=== PATIENT | male | born 1950 | race Caucasian/White ===

== ENCOUNTER 2019-10-23 16:18 | Emergency (ER) | payer MEDICARE, OTHER ==
[~2019-10-23] VITALS: Ht 182.9 cm; Wt 82.1 kg
--- NOTE | 2019-10-23 16:26 | NUR ---
LAITH WHEELER 59 from [facility] "Had diarrhea couple days ago was seen by Resident MD today and b/p was arouns [id number]. [id number], to ER bed 10, hooked to monitor, changed to hosp gown, warm blanklet provided, patient aao X 2, Dr Belle at bedside
[2019-10-23] MEDS ORDERED: FOLI0.4T2 PO (16:47)
[2019-10-23] MEDS ORDERED: RISP0.2515 PO (16:47)
[2019-10-23] MEDS ORDERED: ESCI10TA PO (16:47)
[2019-10-23] MEDS ORDERED: DOCU-141 PO (16:47)
[2019-10-23] MEDS ORDERED: AMLO5TAB9 PO (16:47)
[2019-10-23] MEDS ORDERED: METF-440 PO (16:47)
[2019-10-23] MEDS ORDERED: FERR325T23 PO (16:47)
[2019-10-23] MEDS ORDERED: MAGN400O6 PO (16:47)
[2019-10-23] MEDS ORDERED: OMEP20CA15 PO (16:47)
[2019-10-23] MEDS ORDERED: HYDR-4354 PO (16:47)
[2019-10-23] MEDS ORDERED: INSU100V7 SQ (16:47)
[2019-10-23] MEDS ORDERED: ATOR40TA PO (16:47)
[2019-10-23] MEDS ORDERED: IV NS 0.9% 1,000 ML BAG IV ONE (17:00)
[2019-10-23 17:11] LABS: BASOPHILS # (AUTO) 0.1 /CMM (0.0-0.2); BASOPHILS % (AUTO) 0.8 % (0.0-2.0); EOSINOPHILS % (AUTO) 2.7 % (0.0-6.0); HEMATOCRIT 35 % (39-51); HEMOGLOBIN 11.5 g/dL (13.5-17.5); LYMPHOCYTES # (AUTO) 1.3 /CMM (0.8-4.8); LYMPHOCYTES % (AUTO) 15.6 % (20.0-44.0); MEAN CORPUSCULAR HGB CONC 33 g/dl (31.0-36.0); MEAN CORPUSCULAR VOLUME 91 fL (80-96); MONOCYTES # (AUTO) 0.8 /CMM (0.1-1.30); MONOCYTES % (AUTO) 10.4 % (2.0-12.0); NEUTROPHILS # (AUTO) 5.7 /CMM (1.8-8.9); NEUTROPHILS % (AUTO) 70.5 % (43.0-81.0); PLATELET COUNT (AUTO) 282 /CMM (150-450); RED BLOOD CELL COUNT(AUTO) 3.87 MIL/uL (4.5-6.0); WHITE BLOOD COUNT (AUTO) 8.1 K/uL (4.3-11.0)
[2019-10-23 17:20] LABS: CALCIUM, SERUM 9.4 mg/dL (8.5-10.1); CREATININE 1.2 mg/dL (0.6-1.3); POTASSIUM 4.3 mmol/L (3.5-5.1)
[2019-10-23 17:26] LABS: ALBUMIN 2.9 g/dL (3.4-5.0); BILIRUBIN,DIRECT 0.1 mg/dL (0.0-0.2); BILIRUBIN,TOTAL 0.2 mg/dL (0.2-1.0); TOTAL PROTEIN, SERUM 7.4 g/dL (6.4-8.2)
--- NOTE | 2019-10-23 18:47 | NUR ---
CALLED [facility] FOR TRANSPORT TO [facility]. ETA 2300.
--- NOTE | 2019-10-23 19:10 | NUR ---
PT RESTING COMFORTABLY IN BED. NO ACUTE DISTRESS NOTED. VSS. NO MEDICAL COMPLAINTS AT THIS TIME
--- NOTE | 2019-10-23 19:15 | NUR ---
ASSUMED CARE FOR THIS PT
--- NOTE | 2019-10-23 21:14 | NUR ---
REPORT GIVEN TO TRANSFER. PT TRANSFERED BACK TO FACILITY.
[2019-10-23 21:15] VITALS: BP 148/83
== END 2019-10-23 21:20 | disposition home or self-care (01) ==
LOC: ER 16:18
DX: I95.89 Other hypotension (principal); R19.7 Diarrhea, unspecified; R53.1 Weakness; E11.9 Type 2 diabetes mellitus without complications; Z86.73 Personal history of transient ischemic attack (TIA), and cerebral infarction without residual deficits; Z79.4 Long term (current) use of insulin; Z79.82 Long term (current) use of aspirin; Z79.899 Other long term (current) drug therapy; Z79.84 Long term (current) use of oral hypoglycemic drugs
CPT/HCPCS: 36415; 80048; 80076; 85025; 96360; 99283; J7030

== ENCOUNTER 2019-12-28 16:47 | Inpatient (IN) | payer MEDICARE, OTHER ==
[~2019-12-28] VITALS: Ht 182.9 cm; Wt 80.3 kg
[~2019-12-28 16:47] MED LIST: AMLO5TAB9 PO; ATOR40TA PO; DOCU-141 PO; ESCI10TA PO; FERR325T23 PO; FOLI0.4T2 PO; HYDR-4354 PO; INSU100V7 SQ; MAGN400O6 PO; METF-440 PO; OMEP20CA15 PO; RISP0.2515 PO
--- NOTE | 2019-12-28 17:20 | NUR ---
ALEXANDER FROM [facility] ASSISTED LIVING TO ER BED 12. AWAKE BUT DOES NOT RESPOND WHAEN TALKED TO. NOT IN RESP DISTRESS. BREATHING EVEN AND UNLABORED. BROUGHT IN FOR HYPOGLYCEMIA. PT WAS REPORT TO BE NOTED @ 28 WAS GIVEN DEXTROSE AND WENT UP TO THE 200'S. UPON ASSESSMENT, BS IS NOTED @ 98. WAS AT THE BEDSIDE FOR EVAL. AWAITING FURTHER ORDERS. IV LINE ALREAEDY ESTABLISHED BY EMS FRUIT DUMPER ON R AC 18G. WILL CONTINUE TO MONITOR PT
--- NOTE | 2019-12-28 17:40 | NUR ---
XRAY AND EKG AT BEDSIDE
[2019-12-28 17:46] LABS: BASOPHILS % (AUTO) 0.4 % (0.0-2.0); EOSINOPHILS % (AUTO) 0.6 % (0.0-6.0); HEMATOCRIT 34 % (39-51); HEMOGLOBIN 11.2 g/dL (13.5-17.5); LYMPHOCYTES # (AUTO) 0.9 /CMM (0.8-4.8); LYMPHOCYTES % (AUTO) 10.3 % (20.0-44.0); MEAN CORPUSCULAR HGB CONC 33 g/dl (31.0-36.0); MEAN CORPUSCULAR VOLUME 90 fL (80-96); MONOCYTES % (AUTO) 11.4 % (2.0-12.0); NEUTROPHILS # (AUTO) 6.9 /CMM (1.8-8.9); NEUTROPHILS % (AUTO) 77.3 % (43.0-81.0); PLATELET COUNT (AUTO) 268 /CMM (150-450); RED BLOOD CELL COUNT(AUTO) 3.74 MIL/uL (4.5-6.0); WHITE BLOOD COUNT (AUTO) 8.9 K/uL (4.3-11.0)
[2019-12-28 17:49] LABS: CARBON DIOXIDE 29 mmol/L (21-32); CHLORIDE 103 mmol/L (98-107); CREATININE 0.9 mg/dL (0.6-1.3); GLUCOSE 87 mg/dL (74-106); POTASSIUM 3.9 mmol/L (3.5-5.1); SODIUM SERUM 140 mmol/L (136-145); UREA NITROGEN, BLOOD 15 mg/dL (7-18)
[2019-12-28] MEDS ORDERED: ACETAMINOPHEN 325 MG TABLET PO PRN ×2 (19:00→23:00)
[2019-12-28] MEDS ORDERED: HYDROCODONE/APAP 5/325MG TABLET PO PRN (19:00)
[2019-12-28] MEDS ORDERED: MAGNESIUM HYDROXIDE 30 ML UDC PO PRN ×2 (19:00)
[2019-12-28] MEDS ORDERED: INSULIN REGULAR, HUMAN 100 UNIT/ML 3 ML VIAL SQ PRN (19:00)
[2019-12-28] MEDS ORDERED: MAG HYDROX/AL HYDROX/SIMETH 30 ML UDC PO PRN (19:00)
[2019-12-28] MEDS ORDERED: Z GUARD REMEDY 2 OZ OINT TP PRN ×2 (19:00→23:00)
[2019-12-28] MEDS ORDERED: ONDANSETRON HCL/PF 4 MG/2 ML VIAL IVP PRN ×2 (19:00→23:00)
[2019-12-28] MEDS ORDERED: DEXTROSE 50%-WATER 50 ML DISP.SYRIN IV PRN ×2 (19:00→23:00)
[2019-12-28] MEDS ORDERED: IV D5/0.45 NACL 1,000 ML IV PRN (19:00)
[2019-12-28] MEDS ORDERED: DEXTROSE 50%-WATER 50 ML DISP.SYRIN ONE (19:26)
--- NOTE | 2019-12-28 19:28 | NUR ---
COVID SWAB DONE AND SENT TO LAB
[2019-12-28] MEDS ORDERED: DEXTROSE 50%-WATER 50 ML DISP.SYRIN IVP ONE (19:30)
[2019-12-28] MEDS ORDERED: IV 10% DEXTROSE 1,000 ML IV STA (19:44)
--- NOTE | 2019-12-28 19:54 | NUR ---
LAB CALLED REGARDING NEGATIVE COVID RESULT.
--- NOTE | 2019-12-28 20:49 | NUR ---
BED ASSIGNMENT 325-1
--- NOTE | 2019-12-28 21:01 | NUR ---
REPORT GIVEN TO MONIE TAYLOR FOR YG
[2019-12-28 21:16] VITALS: BP 140/80
--- NOTE | 2019-12-28 21:27 | NUR ---
PT TRANSPORTED TO UNIT ON [address] WITH EMT AT BEDSIDE. PT IS IN STABLE CONDITION FOR TRANSPORT. NAD NOTED
[2019-12-28] MEDS ORDERED: BLOOD SUGAR DIAGNOSTIC 1 EACH STRIP IN SCH (22:00)
[2019-12-28] MEDS ORDERED: risperiDONE 0.25 MG TABLET PO SCH (22:00)
--- NOTE | 2019-12-28 22:44 | NUR ---
TELE/MEDICAL OFFICE TECHNOLOGIST NOTE Patient arrived @ 2115 via gurney from ER. VS BP 140/80 T98/2 P96 R18 [id number] Patient is lethargic, A/O x1-2. Breath sounds even, clear, unlabored on room air. Tele monitor reading normal sinus rhythm, HR in the 90's. No acute distress or SOB noted. CRP <3seconds. No JVD. Tongue midline, no tracheal deviation. PERRLA. Patient does not have teeth and states he does not own dentures. Tongue is pink, mucous membranes moist. Abdomen small, round, soft, non-tender. BS hypoactive. Skin is warm, pink, dry, appropriate for ethnicity. Redness noted on sacrum. Abrasion noted on right thigh, measuring 9cm x 3cm. Photos taken and documented. Oracle Applications Developer strength 3+. Mild weakness noted in right lower extremity. Patient in incontinent, without difficulty. IV site RAC 18g running D10 @ 120 ml/hr, no infiltration. Patient is oriented to room. Bed in low position, wheels locked, side rails up x2, call light within reach.
[2019-12-28] MEDS ORDERED: GLUCAGON,HUMAN RECOMBINANT 1 MG/VIAL VIAL IM ONE (23:00)
[2019-12-28 23:59] VITALS: BP 156/79
[2019-12-29] VITALS (7 sets, daily range): BP systolic 137–158; BP diastolic 56–90
[2019-12-29] MEDS: BLOOD SUGAR DIAGNOSTIC 1 EACH STRIP IN SCH ×6 (00:04→21:02)
--- NOTE | 2019-12-29 00:15 | NUR ---
TELE/RN NOTE Patient's BS is 51. Patient was lethargic. Administered PRN D50 as ordered. Rechecked BS 70.
[2019-12-29] MEDS ORDERED: GLUCAGON,HUMAN RECOMBINANT 1 MG/VIAL VIAL ONE (00:53)
--- NOTE | 2019-12-29 06:03 | NUR ---
TELE/RN CLOSING NOTE Patient is lethargic, A/O x1-2. Breath sounds even, clear, unlabored on room air. Tele monitor reading normal sinus rhythm. No acute distress or SOB noted. Tongue is pink, mucous membranes moist. Abdomen small, round, soft, non-tender. BS hypoactive. Skin is warm, pink, dry, appropriate for ethnicity. Redness noted on sacrum. Abrasion noted on right thigh, measuring 9cm x 3cm. Mild weakness noted in right lower extremity. Patient is incontinent. IV site LFA 18g running D10 @ 120 ml/hr, no infiltration. Bed in low position, wheels locked, side rails up x2, call light within reach.
--- NOTE | 2019-12-29 07:29 | NUR ---
MS/RN OPENING NOTE RECEIVED FROM PLASTICATOR. PATIENT IS IN BED RESTING COMFORTABLY. PATIENT IS A/O X2. VS SIGNS WITHIN NORMAL RANGE. TELE MONITOR READING NORMAL SINUS RHYTHM. NO ACUTE DISTRESS NOTED. LAST BLOOD SUGAR AT 430 87. D10 CONTINUES TO INFUSE AT 120 ML/HR. WILL ENCOURAGE TO EAT AND RECHECK BLOOD SUGAR AT 0900. SAFETY PRECAUTION IN PLACE. PATIENT BED IS LOCKED AND IN LOWEST POSITION, CALL LIGHT WITHIN REACH. WILL CONTINUE TO MONITOR AND ENSURE SAFETY.
[2019-12-29 07:37] LABS: BASOPHILS # (AUTO) 0.1 /CMM (0.0-0.2); BASOPHILS % (AUTO) 0.9 % (0.0-2.0); EOSINOPHILS % (AUTO) 1.4 % (0.0-6.0); HEMATOCRIT 32 % (39-51); HEMOGLOBIN 10.7 g/dL (13.5-17.5); LYMPHOCYTES # (AUTO) 1.3 /CMM (0.8-4.8); LYMPHOCYTES % (AUTO) 18.8 % (20.0-44.0); MEAN CORPUSCULAR HGB CONC 34 g/dl (31.0-36.0); MEAN CORPUSCULAR VOLUME 90 fL (80-96); MONOCYTES % (AUTO) 13.7 % (2.0-12.0); NEUTROPHILS # (AUTO) 4.5 /CMM (1.8-8.9); NEUTROPHILS % (AUTO) 65.2 % (43.0-81.0); PLATELET COUNT (AUTO) 249 /CMM (150-450); RED BLOOD CELL COUNT(AUTO) 3.53 MIL/uL (4.5-6.0)
[2019-12-29 08:18] LABS: ALBUMIN 2.7 g/dL (3.4-5.0); BILIRUBIN,TOTAL 0.4 mg/dL (0.2-1.0); CALCIUM, SERUM 8.8 mg/dL (8.5-10.1); CREATININE 0.9 mg/dL (0.6-1.3); MAGNESIUM 1.9 mg/dL (1.8-2.4); PHOSPHORUS 3.5 mg/dL (2.5-4.9); POTASSIUM 3.4 mmol/L (3.5-5.1); TOTAL PROTEIN, SERUM 6.7 g/dL (6.4-8.2)
--- NOTE | 2019-12-29 08:20 | NUR ---
WOUND CARE CONSULT: PT PRESENTS WITH RT THIGH OPEN ABRASION AND RASH TO PERINEUM AND INNER BUTTOCKS, PRESENT ON ADMISSION. RECOMMENDATIONS MADE FOR WOUND CARE AND SKIN PROTECTION. DISCUSSED WITH NURSING STAFF. PT IS INCONTINENT. MD IN AGREEMENT WITH PLAN OF CARE.
[2019-12-29 08:26] LABS: THYROID STIMULATING HORMONE 2.967 uIU/mL (0.358-3.74)
[2019-12-29] MEDS ORDERED: POTASSIUM CHLORIDE 20 MEQ TAB.PRT.SR PO ONE (08:30)
--- NOTE | 2019-12-29 08:30 | NUR ---
MS/RN S/B MYAH, PIGS FEET CLEANER S/B PIGS FEET CLEANER CONTINUE TO MONITOR BLOOD SUGAR. AM LABS. NO NEW ORDERS AT THIS TIME.
[2019-12-29] MEDS: ENOXAPARIN SODIUM 40 MG/0.4 ML DISP.SYRIN SQ SCH (08:35)
[2019-12-29] MEDS: CLOTRIMAZOLE 1% 15 GM TUBE TP SCH ×2 (08:36→16:45)
[2019-12-29] MEDS: Sodium Chloride 154 MEQ in IV 10% DEXTROSE 1,000 ML IV PRN ×2 (08:45→21:03)
[2019-12-29] MEDS ORDERED: AMLODIPINE BESYLATE 5 MG TABLET PO SCH (09:00)
--- NOTE | 2019-12-29 09:00 | NUR ---
MS/RN BLOOD SUGAR MEDICATIONS WERE GIVEN. BLOOD SUGAR CHECKED, 77 AT 0900. NO INSULIN NEEDED AT THIS TIME. ALL MEDICATIONS GIVEN WITH APPLE SAUCE TO PREVENT HYPOGLYCEMIA. CONDOM CATHETER WAS PLACED DUE TO LARGE WOUND ON RIGHT THIGH. PATIENT PERMISSION OBTAINED BEFORE PROCEDURE.
--- NOTE | 2019-12-29 18:40 | NUR ---
MS/RN CLOSING NOTE PATIENT IS IN STABLE CONDITION. A/O X3. NO ACUTE DISTRESS NOTED. TELE MONITOR NSR. CONDOM CATHETER INTACT. PATIENT BLOOD SUGAR 1700 - 171. ALL NEEDS ATTENDED, WILL ENDORSE TO [employer] ARCHITECT.
--- NOTE | 2019-12-29 19:48 | NUR ---
GRAIN CLEANER AND TRANSFER OPERATOR OPENING NOTES RECEIVED PATIENT RESTING IN BED COMFORTABLY; A/OX3, BREATHING EVEN AND UNLABORED; NO SOB NOTED; TOLERATING ROOM AIR WELL; TELE MONITOR READS SINUS RHYTHM; L FA #18 INTACT AND PATENT, TOLERATING IVF WELL; CONDOM CATH IN PLACE WITH YELLOW OUTPUT NOTED; SAFETY PRECAUTIONS IMPLEMENTED; BED LOCKED IN LOW POSITION; SIDE RAILX2, CALL LIGHT WITHIN REACH; WILL CONT TO MONITOR
[2019-12-29] MEDS: INSULIN REGULAR, HUMAN 100 UNIT/ML 3 ML VIAL SQ PRN (21:02)
[2019-12-30] VITALS: BP 144/78
[2019-12-30] MEDS: BLOOD SUGAR DIAGNOSTIC 1 EACH STRIP IN SCH ×5 (01:20→16:21)
[2019-12-30 04:00] VITALS: BP 156/68
--- NOTE | 2019-12-30 06:47 | NUR ---
SKEET OPERATOR CLOSING NOTES PATIENT RESTING IN BED COMFORTABLY; A/OX2, BREATHING EVEN AND UNLABORED; NO SOB NOTED; TOLERATING ROOM AIR WELL; TELE MONITOR READS NSR; L FA # 18 INTACT AND PATENT, TOLERATING IVF WELL; CONDOM CATH IN PLACE, WITH YELLOW OUTPUT; ALL NEEDS RENDERD; SAFETY PRECAUTIONS IMPLEMENTED; BED LOCKED IN LOW POSITION; SIDE RAILSX2; CALL LIGHT WITHIN REACH; WILL ENDORSE YG TO ONCOMOING SHIFT
--- NOTE | 2019-12-30 07:30 | NUR ---
TELE/RN OPENING NOTE Received patient resting in bed, A&O x 2. Denies any pain/discomfort at this time. Breathing even and non-labored on RA, no SOB noted. No cardiac distress noted. On tele monitor, reading SR 71. IV access noted L FA #18, patent and intact, tolerating IV fluids well at 80 ml/hr. Sensation from all peripheral extremities intact. Bed locked to its lowest position, side rails x 2 up, call light in hand. Will continue with current medical management. Addendum: 12/30/19 at 08 by ARA BECK RN Sparrow in place, draining yellow urine output well. Addendum: 12/30/19 at 0907 by ARA BECK RN Correction: Condom cath in place
[2019-12-30] MEDS: ENOXAPARIN SODIUM 40 MG/0.4 ML DISP.SYRIN SQ SCH (08:24)
[2019-12-30] MEDS: INSULIN REGULAR, HUMAN 100 UNIT/ML 3 ML VIAL SQ PRN ×3 (08:25→16:23)
[2019-12-30 08:26] VITALS: BP 142/104
[2019-12-30] MEDS: CLOTRIMAZOLE 1% 15 GM TUBE TP SCH ×2 (08:26→16:21)
[2019-12-30 12:00] VITALS: BP 131/57
[2019-12-30 12:11] LABS: BASOPHILS # (AUTO) 0.1 /CMM (0.0-0.2); BASOPHILS % (AUTO) 1.2 % (0.0-2.0); EOSINOPHILS % (AUTO) 3.5 % (0.0-6.0); HEMATOCRIT 34 % (39-51); HEMOGLOBIN 11.4 g/dL (13.5-17.5); LYMPHOCYTES # (AUTO) 1.1 /CMM (0.8-4.8); LYMPHOCYTES % (AUTO) 20.2 % (20.0-44.0); MEAN CORPUSCULAR HGB CONC 34 g/dl (31.0-36.0); MEAN CORPUSCULAR VOLUME 90 fL (80-96); MONOCYTES # (AUTO) 0.8 /CMM (0.1-1.30); MONOCYTES % (AUTO) 15.1 % (2.0-12.0); NEUTROPHILS # (AUTO) 3.3 /CMM (1.8-8.9); PLATELET COUNT (AUTO) 255 /CMM (150-450); RED BLOOD CELL COUNT(AUTO) 3.75 MIL/uL (4.5-6.0); WHITE BLOOD COUNT (AUTO) 5.5 K/uL (4.3-11.0)
[2019-12-30 12:25] LABS: CALCIUM, SERUM 8.4 mg/dL (8.5-10.1); CREATININE 1.1 mg/dL (0.6-1.3); POTASSIUM 3.3 mmol/L (3.5-5.1)
[2019-12-30] MEDS ORDERED: INSU100V SQ (13:58)
[2019-12-30] MEDS ORDERED: BLOO1EAC70 MC (13:58)
[2019-12-30] MEDS ORDERED: LANC-576 MC (13:58)
[2019-12-30] MEDS ORDERED: [UNRECOGNIZED DRUG - CODE] MC (13:58)
[2019-12-30] MEDS ORDERED: ISOP1TOW MC (13:58)
[2019-12-30] MEDS ORDERED: POTASSIUM CHLORIDE 20 MEQ TAB.PRT.SR PO ONE (14:00)
--- NOTE | 2019-12-30 17:00 | NUR ---
TELE/FLOOR LAYER APPRENTICE NOTE Patient remained stable throughout the shift. All needs met and attended to. VSS, afebrile, no SOB noted. No complaints of pain/discomfort at this time. No s/s of hypo/hyperglycemia noted. Breathing even and non-labored on RA, no SOB noted. No cardiac distress noted. Removed leads from skin, chest skin is intact. IV access on L FA #18 removed with catheter intact. No s/s of bleeding, infection, or infiltration noted on site. Patient was able to void on his own. Sensation from all peripheral extremities intact. Wound care done. Photos of skin impairments taken and placed on chart. Educated patient and notified [facility] of discharge instructions, both verbalize understanding. Patient left facility safely with ambulance at 1700. No belongings noted.
[2019-12-30 17:31] VITALS: BP 138/61
== END 2019-12-30 18:00 | DRG 638 ==
LOC: ER 16:50 → TELE 20:52
PROVIDERS: ADMIT Nurse Practitioner Acute Care; ATTEND Nurse Practitioner Acute Care
DX: E11.649 Type 2 diabetes mellitus with hypoglycemia without coma (principal); E44.0 Moderate protein-calorie malnutrition; E78.5 Hyperlipidemia, unspecified; I10 Essential (primary) hypertension; D64.9 Anemia, unspecified; F32.9 Major depressive disorder, single episode, unspecified; Z86.73 Personal history of transient ischemic attack (TIA), and cerebral infarction without residual deficits; E87.6 Hypokalemia; Z79.4 Long term (current) use of insulin; E88.09 Other disorders of plasma-protein metabolism, not elsewhere classified; Z68.24 Body mass index [BMI] 24.0-24.9, adult; E11.65 Type 2 diabetes mellitus with hyperglycemia
CPT/HCPCS: 36415; 70450-TC; 71045-TC; 80048-TC; 80053-TC; 80061-TC; 82962-TC; 83735-TC; 84100-TC; 84443-TC; 84484-TC; 85025-TC; 87081-TC; A4349; A6253; C9803; G0378; J1610; J1650; J1815; J3490